=== PATIENT | female | born 1935 | race Caucasian/White ===

== ENCOUNTER 2017-12-03 21:19 | Emergency (ER) | payer MEDICARE ==
--- NOTE | 2017-12-03 21:48 | ED Physician Documentation ---
PD HPI HEAD INJURY - Stated complaint Stated Complaint: GLF - HEAD LAC - Chief complaint Chief Complaint: Trauma Hd/Nk - History obtained from History obtained from: Patient - History of Present Illness Mechanism of head injury: Fell (SHe was gardening and had mechanical fall backward and hit back of head. No LOC. Has a moderate headache. Also C/O neck pain. 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 HEENT: None Psych: Depression Derm: None - Past Surgical History Past Surgical History: Yes /SOCIAL SCIENCES DEPARTMENT CHAIR: Hysterectomy, Oophrectomy Cardiovascular: CABG, Coronary stent, AAA - Allergies Allergies/Adverse Reactions: Allergies Allergy/AdvReac Type Severity Reaction Status Date / Time Penicillins AdvReac Nausea Verified 12/03/17 21:31 Sulfa (Sulfonamide AdvReac Nausea Verified 12/03/17 21:31 Antibiotics) - Social History Does the pt smoke?: No Smoking Status: Never smoker Does the pt drink ETOH?: No Does the pt have substance abuse?: No - Immunizations Immunizations are current?: Yes - POLST Patient has POLST: No PD ED PE NORMAL - Vitals Vital signs reviewed: Yes - General General: Alert and oriented X 3, No acute distress - HEENT HEENT: PERRL, EOMI, Other (Large hematoma right occipuit) - Neck Neck: Other (Mild upper c spine TTP.) - Neuro Neuro: Alert and oriented X 3, 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 Eye Opening: Spontaneous Motor: Obeys Commands Verbal: Oriented GCS Score: 15 - Psych Psych: Normal mood, Normal affect Results - Vitals Vitals: Vital Signs - 24 hr 12/03/17 21:27 Temperature 37.2 C Heart Rate 80 Respiratory 19 Rate Blood Pressure 207/89 H O2 Saturation 98 Oxygen O2 Source Room air - Rads (name of study) CT Head Radiology: EMP read contemporaneously (Old CVA, no ICH, scalp hematoma.) CT C spine Radiology: EMP read contemporaneously (AAROND no frx.) Departure - Departure Disposition: 01 Home, Self Care Clinical Impression: Fall from ground level Concussion Qualifiers: Encounter type: initial encounter Loss of consciousness presence/duration: without LOC Qualified Code(s): S06.0X0A - Concussion without loss of consciousness, initial encounter Contusion Qualifiers: Encounter type: initial encounter Contusion area: head Contusion of head detail : scalp Qualified Code(s): S00.03XA - Contusion of scalp, initial encounter Neck sprain Qualifiers: Encounter type: initial encounter Qualified Code(s): S13.9XXA - Sprain of joints and ligaments of unspecified parts of neck, initial encounter Condition: Good Instructions: ED Head Injury Closed, ED Sprain Strain Neck Comments: Call your doctor to arrange a follow-up appointment, make the next available appointment. In the interim, return anytime if worse or if new symptoms develop. Your blood pressure was elevated today on check into the emergency department. This does not mean that you have hypertension, it is a common phenomenon to come to the emergency department and have elevated blood pressure. I recommend that you see your primary care physician within the week to have it rechecked when you are feeling better.
[2017-12-03] MEDS ORDERED: HYDROcod/ACETAM 5/325 MG TABLET PO STA (21:51)
--- NOTE | 2017-12-03 23:01 | CT Report ---
EXAM: CT HEAD EXAM DATE: 12/03/2017 10:03 PM. CLINICAL HISTORY: Fall with head injury COMPARISON: None. TECHNIQUE: Multiaxial CT images were obtained from the foramen magnum to the vertex. Reformats: Coron al. IV contrast: None. In accordance with CT protocol optimization, one or more of the following dose reduction techniques w ere utilized for this exam: automated exposure control, adjustment of mA and/or KV based on patient s ize, or use of iterative reconstructive technique. FINDINGS: Parenchyma: No intraparenchymal hemorrhage. No evidence of mass, midline shift, or CT findings of inf arction. Hale-white differentiation is distinct. Old, small infarct left cerebellum. Extraaxial Spaces: Normal for age. No subdural or epidural collections identified. Ventricles: Normal in size and position. Sinuses and Orbits: Imaged paranasal sinuses, orbits, and mastoids show no significant abnormality. Bones: No evidence of fracture or calvarial defect. Other: Extracranial soft tissue swelling over the right occiput. IMPRESSION: Right posterior scalp hematoma. 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 No acute intracranial process identified. [facility] Referring Provider Line: [phone] SITE ID: [id number]
[2017-12-03] MEDS ORDERED: ACETAMINOPHEN 500 MG TABLET PO STA (23:04)
--- NOTE | 2017-12-03 23:05 | CT Report ---
EXAM: CT CERVICAL SPINE WITHOUT CONTRAST DATE: 12/03/2017 10:03 PM. HISTORY: Neck pain after fall. COMPARISONS: None. TECHNIQUE: Thin-section axial images were acquired of the cervical spine without contrast. Post-proce ssing: Coronal and sagittal reformats. Other: None. In accordance with CT protocol optimization, one or more of the following dose reduction techniques w ere utilized for this exam: automated exposure control, adjustment of mA and/or KV based on patient s ize, or use of iterative reconstructive technique. FINDINGS: Alignment: No scoliosis or spondylolisthesis. Bones: No fracture or bone lesion. Interspace Levels/Facets: Disk space narrowing is most pronounced at C3-C4 and C5-C6. Mild narrowing of the central canal by en dplate osteophyte. 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 Musculature: Normal. No fatty atrophy. Other: The paravertebral and prevertebral soft tissues are unremarkable. The lung apices are clear. IMPRESSION: Degenerative changes in the cervical spine, most pronounced at C3-C4 and C5-C6. No fractu re is identified. [facility] Referring Provider Line: [phone] SITE ID: [id number]
[2017-12-03 23:15] VITALS: BP 155/67
== END 2017-12-03 23:22 | disposition home or self-care (01) ==
LOC: ED 21:19
DX: S06.0X0A Concussion without loss of consciousness, initial encounter (principal); S00.03XA Contusion of scalp, initial encounter; S13.9XXA Sprain of joints and ligaments of unspecified parts of neck, initial encounter; W18.30XA Fall on same level, unspecified, initial encounter; Y93.H2 Activity, gardening and landscaping; Y92.007 Garden or yard of unspecified non-institutional (private) residence as the place of occurrence of the external cause; I10 Essential (primary) hypertension; I25.2 Old myocardial infarction; E11.9 Type 2 diabetes mellitus without complications; Z95.1 Presence of aortocoronary bypass graft; Z95.5 Presence of coronary angioplasty implant and graft
CPT/HCPCS: 70450; 72125; 99283; A9270